=== PATIENT | female | born 1940 | race Caucasian/White ===

== ENCOUNTER 2021-12-14 16:57 | Inpatient (IN) ==
[2021-12-15] MEDS ORDERED: Acetaminophen 325 MG TABLET PO PRN (17:08)
[2021-12-15] MEDS ORDERED: Fluticasone Propionate Nasal 50 MCG/SPRAY BOTTLE NS PRN (17:08)
[2021-12-15] MEDS ORDERED: 0.9 % Sodium Chloride 1,000 ML IVC SCH (17:15)
[2021-12-15] MEDS: Gabapentin 100 MG CAPSULE PO SCH (23:05)
[2021-12-15] MEDS: *HR* Heparin 5,000 UNIT/ML VIAL SQ SCH (23:05)
[2021-12-16 05:40] LABS: Basophils % 0.3 %; Eosinophils # 0.4 K/mcL (0.0-0.6); Eosinophils % 3.2 %; Hematocrit 32.2 % (35.3-44.9); Hemoglobin 10.3 g/dL (11.5-15.4); Immature Granulocytes % 1.5 % (0-4); Lymphocytes # 1.5 K/mcL (0.6-4.6); Mean Corpuscular Hemoglobin 29.6 pg (28.0-33.3); Mean Corpuscular Volume 92.5 fL (83.0-100.0); Mean Platelet Volume 11.3 fL (9.4-12.4); Monocytes # 0.8 K/mcL (0.0-1.3); Monocytes % 6.7 %; Neutrophils # 9.4 K/mcL (1.6-8.9); Platelet Count 180 K/mcL (140-400); Red Blood Count 3.48 M/mcL (3.82-4.97); Red Cell Distribution Width 15.1 % (11.5-14.5); Segmented Neutrophils % 76.3 %; White Blood Count 12.3 K/mcL (4.3-11.1)
[2021-12-16] MEDS: *HR* Heparin 5,000 UNIT/ML VIAL SQ SCH ×3 (06:06→20:59)
[2021-12-16 06:24] LABS: Calcium 7.7 mg/dL (8.6-10.3); Potassium 3.9 mEq/L (3.5-5.1)
[2021-12-16] MEDS: Metoprolol XL (24 HR) Succ 25 MG TAB.ER.24H PO SCH (08:21)
[2021-12-16] MEDS ORDERED: SOLIFENACIN SUCCINATE 10 MG PO SCH (09:00)
[2021-12-16] MEDS ORDERED: Sodium Bicarbonate 75 MEQ in 0.45 % Sodium Chloride 1,000 ML IVC SCH (17:00)
[2021-12-16] MEDS: Gabapentin 100 MG CAPSULE PO SCH (20:57)
[2021-12-16] MEDS: Nystatin POWDER 30 GM BOTTLE TP SCH (20:58)
[2021-12-17 05:08] LABS: Basophils % 0.3 %; Eosinophils # 0.5 K/mcL (0.0-0.6); Eosinophils % 5.6 %; Hematocrit 31.3 % (35.3-44.9); Immature Granulocytes % 1.7 % (0-4); Lymphocytes # 1.5 K/mcL (0.6-4.6); Lymphocytes % 17.1 %; Mean Corpuscular HGB Conc 31.9 g/dL (31.6-35.5); Mean Corpuscular Hemoglobin 29.6 pg (28.0-33.3); Mean Corpuscular Volume 92.6 fL (83.0-100.0); Mean Platelet Volume 10.7 fL (9.4-12.4); Monocytes # 0.8 K/mcL (0.0-1.3); Monocytes % 8.9 %; Neutrophils # 5.8 K/mcL (1.6-8.9); Platelet Count 181 K/mcL (140-400); Red Blood Count 3.38 M/mcL (3.82-4.97); Red Cell Distribution Width 15.2 % (11.5-14.5); Segmented Neutrophils % 66.4 %; White Blood Count 8.8 K/mcL (4.3-11.1)
[2021-12-17 05:21] LABS: Calcium 7.8 mg/dL (8.6-10.3)
[2021-12-17] MEDS: *HR* Heparin 5,000 UNIT/ML VIAL SQ SCH ×3 (05:36→21:24)
[2021-12-17] MEDS: Metoprolol XL (24 HR) Succ 25 MG TAB.ER.24H PO SCH (08:09)
[2021-12-17] MEDS: Nystatin POWDER 30 GM BOTTLE TP SCH ×2 (08:21→21:24)
[2021-12-17 11:58] LABS: VBG HCO3 25 mEq/L (21-27); VBG PCO2 42 mmHg (41-51); VBG PH 7.38 pH Units (7.32-7.42); VBG PO2 56 mmHg (25-50)
[2021-12-17 12:14] LABS: Bilirubin,Urine Negative (Negative); Blood,Urine Moderate (Negative); Clarity,Urine Clear (Clear); Color,Urine Yellow (Yellow); Glucose,Urine (UA) Normal (Normal); Ketones,Urine Negative (Negative); Leukocyte Esterase,Urine Moderate (Negative); Nitrite,Urine Negative (Negative); Protein,Urine Negative (Neg-Trace); Urobilinogen,Urine Normal (Normal)
[2021-12-17 12:47] LABS: RBC,Urine 0-3 per hpf (0-3); Squamous Epithelial Cell,Urine Few per hpf (None-Few)
[2021-12-17] MEDS: Gabapentin 100 MG CAPSULE PO SCH (21:23)
[2021-12-17] MEDS: Acetaminophen 325 MG TABLET PO PRN (21:23)
[2021-12-18] MEDS: *HR* Heparin 5,000 UNIT/ML VIAL SQ SCH ×3 (05:09→22:06)
[2021-12-18] MEDS: Metoprolol XL (24 HR) Succ 25 MG TAB.ER.24H PO SCH (08:48)
[2021-12-18] MEDS: Nystatin POWDER 30 GM BOTTLE TP SCH ×2 (08:48→22:06)
[2021-12-18] MEDS: Acetaminophen 325 MG TABLET PO PRN ×2 (09:03→22:06)
[2021-12-18] MEDS: Gabapentin 100 MG CAPSULE PO SCH (22:05)
[2021-12-19 04:50] LABS: Hematocrit 32.8 % (35.3-44.9); Hemoglobin 10.4 g/dL (11.5-15.4); Mean Corpuscular HGB Conc 31.7 g/dL (31.6-35.5); Mean Corpuscular Hemoglobin 29.7 pg (28.0-33.3); Mean Corpuscular Volume 93.7 fL (83.0-100.0); Mean Platelet Volume 11.2 fL (9.4-12.4); Platelet Count 221 K/mcL (140-400); Red Cell Distribution Width 15.4 % (11.5-14.5); White Blood Count 8.8 K/mcL (4.3-11.1)
[2021-12-19 05:14] LABS: Albumin 2.4 g/dL (3.5-5.7); Bilirubin,Total 0.6 mg/dL (0.3-1.0); Calcium 8.1 mg/dL (8.6-10.3); Globulin 2.3 g/dL (2.4-3.5); Magnesium 1.6 mg/dL (1.6-2.6); Potassium 4.4 mEq/L (3.5-5.1); Total Protein 4.7 g/dL (6.4-8.9)
[2021-12-19] MEDS: *HR* Heparin 5,000 UNIT/ML VIAL SQ SCH ×3 (05:30→21:13)
[2021-12-19] MEDS: Doxycycline 100 MG in 0.9 % Sodium Chloride Mini Bag 100 ML IVPB SCH ×2 (09:05→21:15)
[2021-12-19] MEDS: Nystatin POWDER 30 GM BOTTLE TP SCH ×2 (10:00→21:16)
[2021-12-19] MEDS ORDERED: Doxycycline 100 MG in 0.9 % Sodium Chloride Mini Bag 100 ML IVPB SCH (21:00)
[2021-12-19] MEDS: Sennosides 8.6 MG TABLET PO SCH (21:11)
[2021-12-19] MEDS: Gabapentin 100 MG CAPSULE PO SCH (21:11)
[2021-12-19] MEDS: Acetaminophen 325 MG TABLET PO PRN (21:12)
[2021-12-20] MEDS: *HR* Heparin 5,000 UNIT/ML VIAL SQ SCH ×3 (05:10→20:06)
[2021-12-20] MEDS: Acetaminophen 325 MG TABLET PO PRN ×2 (08:37→20:06)
[2021-12-20] MEDS: Doxycycline 100 MG in 0.9 % Sodium Chloride Mini Bag 100 ML IVPB SCH ×2 (08:38→20:06)
[2021-12-20] MEDS: Sennosides 8.6 MG TABLET PO SCH ×2 (08:38→20:06)
[2021-12-20] MEDS: Nystatin POWDER 30 GM BOTTLE TP SCH ×2 (08:38→20:15)
[2021-12-20] MEDS: Cefepime HCl 1,000 MG in 0.9 % Sodium Chloride 10 ML IVP SCH (17:27)
[2021-12-20] MEDS: Gabapentin 100 MG CAPSULE PO SCH (20:06)
[2021-12-20] MEDS: Melatonin 3 MG TABLET PO PRN (23:50)
[2021-12-21 04:24] LABS: Hematocrit 32.5 % (35.3-44.9); Hemoglobin 10.2 g/dL (11.5-15.4); Mean Corpuscular HGB Conc 31.4 g/dL (31.6-35.5); Mean Corpuscular Hemoglobin 29.4 pg (28.0-33.3); Mean Corpuscular Volume 93.7 fL (83.0-100.0); Platelet Count 227 K/mcL (140-400); Red Blood Count 3.47 M/mcL (3.82-4.97); Red Cell Distribution Width 15.6 % (11.5-14.5); White Blood Count 8.2 K/mcL (4.3-11.1)
[2021-12-21 04:39] LABS: Calcium 8.1 mg/dL (8.6-10.3); Potassium 3.9 mEq/L (3.5-5.1)
[2021-12-21] MEDS: *HR* Heparin 5,000 UNIT/ML VIAL SQ SCH ×3 (04:44→21:45)
[2021-12-21] MEDS: Cefepime HCl 1,000 MG in 0.9 % Sodium Chloride 10 ML IVP SCH ×2 (04:54→17:26)
[2021-12-21] MEDS: Doxycycline 100 MG in 0.9 % Sodium Chloride Mini Bag 100 ML IVPB SCH ×2 (08:31→21:46)
[2021-12-21] MEDS: Sennosides 8.6 MG TABLET PO SCH ×2 (08:31→21:44)
[2021-12-21] MEDS: Nystatin POWDER 30 GM BOTTLE TP SCH ×2 (08:31→21:43)
[2021-12-21] MEDS: Gabapentin 100 MG CAPSULE PO SCH (21:44)
[2021-12-21] MEDS: Acetaminophen 325 MG TABLET PO PRN (21:44)
[2021-12-22] MEDS: Melatonin 3 MG TABLET PO PRN ×2 (00:45→23:12)
[2021-12-22] MEDS: Cefepime HCl 1,000 MG in 0.9 % Sodium Chloride 10 ML IVP SCH ×2 (05:51→18:18)
[2021-12-22] MEDS: *HR* Heparin 5,000 UNIT/ML VIAL SQ SCH ×3 (05:53→23:11)
[2021-12-22] MEDS: Doxycycline 100 MG in 0.9 % Sodium Chloride Mini Bag 100 ML IVPB SCH ×2 (08:42→23:10)
[2021-12-22] MEDS: Sennosides 8.6 MG TABLET PO SCH ×2 (08:42→23:25)
[2021-12-22] MEDS: Nystatin POWDER 30 GM BOTTLE TP SCH ×2 (08:42→23:21)
[2021-12-22] MEDS: Acetaminophen 325 MG TABLET PO PRN ×2 (08:44→23:22)
[2021-12-22] MEDS: Gabapentin 100 MG CAPSULE PO SCH (23:22)
[2021-12-23] MEDS: Cefepime HCl 1,000 MG in 0.9 % Sodium Chloride 10 ML IVP SCH ×2 (06:55→17:47)
[2021-12-23] MEDS: *HR* Heparin 5,000 UNIT/ML VIAL SQ SCH ×3 (06:55→22:28)
[2021-12-23] MEDS: Doxycycline 100 MG in 0.9 % Sodium Chloride Mini Bag 100 ML IVPB SCH ×2 (09:13→22:21)
[2021-12-23] MEDS: Nystatin POWDER 30 GM BOTTLE TP SCH ×2 (09:13→22:38)
[2021-12-23] MEDS: Sennosides 8.6 MG TABLET PO SCH ×2 (09:13→22:20)
[2021-12-23 21:31] VITALS: O2SAT 95
[2021-12-23] MEDS: Gabapentin 100 MG CAPSULE PO SCH (22:34)
[2021-12-24] MEDS: Acetaminophen 325 MG TABLET PO PRN (01:11)
[2021-12-24] MEDS: Melatonin 3 MG TABLET PO PRN (01:11)
[2021-12-24] MEDS: *HR* Heparin 5,000 UNIT/ML VIAL SQ SCH (05:35)
[2021-12-24] MEDS: Cefepime HCl 1,000 MG in 0.9 % Sodium Chloride 10 ML IVP SCH (05:38)
[2021-12-24 07:25] VITALS: BP 126/71; PULSE 58; RESP 14; TEMP 98.1
[2021-12-24 07:48] LABS: Basophils # 0.1 K/mcL (0.0-0.2); Basophils % 0.7 %; Eosinophils # 0.4 K/mcL (0.0-0.6); Eosinophils % 5.3 %; Hematocrit 34.5 % (35.3-44.9); Hemoglobin 10.8 g/dL (11.5-15.4); Immature Granulocytes % 0.3 % (0-4); Lymphocytes # 1.3 K/mcL (0.6-4.6); Lymphocytes % 19.7 %; Mean Corpuscular HGB Conc 31.3 g/dL (31.6-35.5); Mean Corpuscular Hemoglobin 29.4 pg (28.0-33.3); Mean Platelet Volume 11.2 fL (9.4-12.4); Monocytes # 0.7 K/mcL (0.0-1.3); Monocytes % 9.6 %; Neutrophils # 4.4 K/mcL (1.6-8.9); Platelet Count 226 K/mcL (140-400); Red Blood Count 3.67 M/mcL (3.82-4.97); Red Cell Distribution Width 15.8 % (11.5-14.5); Segmented Neutrophils % 64.4 %; White Blood Count 6.8 K/mcL (4.3-11.1)
[2021-12-24 08:07] LABS: Calcium 8.7 mg/dL (8.6-10.3); Potassium 3.3 mEq/L (3.5-5.1)
[2021-12-24] MEDS: Sennosides 8.6 MG TABLET PO SCH (08:37)
[2021-12-24] MEDS: Doxycycline 100 MG in 0.9 % Sodium Chloride Mini Bag 100 ML IVPB SCH (09:48)
[2021-12-24] MEDS: Nystatin POWDER 30 GM BOTTLE TP SCH (09:54)
== END 2021-12-24 10:57 | DRG 565 ==
LOC: INPGRE 12-15 21:52
PROVIDERS: ADMIT Internal Medicine; ATTEND Internal Medicine